=== PATIENT | female | born 1970 | race Caucasian/White ===

== ENCOUNTER 2018-09-24 15:55 | Emergency (ER) | payer BC ==
[~2018-09-24] VITALS: Ht 167.6 cm; Wt 68.0 kg
[~2018-09-24 15:55] MED LIST: ATEN-41 PO; CLON0.5T12 PO; GABA-531 PO; LEVE500T9 PO
[2018-09-24 16:00] VITALS: BP_SYST 114
[2018-09-24] MEDS ORDERED: NACL 0.9% 1,000 ML IV ONE ×2 (16:15→16:30)
[2018-09-24] MEDS ORDERED: ONDANSETRON HCL 4 MG/2 ML VIAL IVP ONE (16:30)
[2018-09-24] MEDS ORDERED: KETOROLAC TROMETHAMINE 30 MG VIAL IVP ONE (16:30)
[2018-09-24] MEDS ORDERED: levETIRAcetam 1,000 MG IV BAG 100 ML IV ONE (16:30)
[2018-09-24 16:43] LABS: ANION GAP 8 (5-15); CALCIUM 8.5 mg/dL (8.4-11.0); CHLORIDE 105 mmol/L (98-107); CREATININE 0.74 mg/dL (0.55-1.30); GFR AFRICAN AMERICAN 107 mL/min (>90); GLUCOSE 117 mg/dL (70-99); POTASSIUM 3.5 mmol/L (3.5-5.1); SODIUM SERUM 139 mmol/L (136-145); UREA NITROGEN, BLOOD 11 mg/dL (8-21)
[2018-09-24 16:47] LABS: HEMATOCRIT 31.8 % (36-48); HEMOGLOBIN 10.1 g/dL (12.0-16.0); MEAN CORPUSCULAR HEMOGLOBIN 23 pg (27-31); MEAN CORPUSCULAR HGB CONC 32 % (32-36); MEAN CORPUSCULAR VOLUME 72 fL (79.0-98.0); PLATELET COUNT (AUTO) 220 K/uL (130-430); RED BLOOD CELL COUNT(AUTO) 4.41 MIL/uL (4.2-6.2); RED CELL DISTRIBUTION WIDTH 16.4 % (9.0-15.0); WHITE BLOOD COUNT (AUTO) 6.4 K/uL (4.8-10.8)
[2018-09-24 16:51] LABS: ACETAMINOPHEN < 1 ug/mL (1-30); ALANINE AMINOTRANSFERASE 14 U/L (12-78); ALBUMIN 3.2 g/dL (3.4-4.8); ASPARTATE AMINOTRANSFERASE 14 U/L (10-37); TOTAL BILIRUBIN 0.3 mg/dL (0.0-1.0)
[2018-09-24 16:52] LABS: ALCOHOL, BLOOD < 3 mg/dL (<10)
[2018-09-24 16:55] LABS: LYMPHOCYTES % (AUTO) 20.6 % (20.5-51.5); MONOCYTES % (AUTO) 8.9 % (1.7-9.3)
[2018-09-24 16:56] LABS: BASOPHILS % (AUTO) 0.5 % (0.0-2.0); EOSINOPHILS # (AUTO) 0.1 K/uL (0.0-0.4); LYMPHOCYTES # (AUTO) 1.3 K/uL (1.0-5.5); MONOCYTES # (AUTO) 0.6 K/uL (0.0-1.0); NEUTROPHILS # (AUTO) 4.3 K/uL (1.8-7.7)
[2018-09-24 17:05] LABS: BARBITURATE, URINE NEGATIVE (NEG <=200); BENZODIAZEPINE, URINE NEGATIVE (NEG <=150); CANNABINOID, URINE NEGATIVE (NEG <=50); COCAINE, URINE NEGATIVE (NEG <=150); METHAMPHETAMINES SCREEN,URINE NEGATIVE (NEG <=500); OPIATE, URINE NEGATIVE (NEG <=100); PHENCYCLIDINE SCREEN,URINE NEGATIVE (NEG <=25); UR TRICYCLIC ANTIDEPRESSANTS NEGATIVE (NEG <=300); URINE AMPHETAMINE NEGATIVE (NEG <=500); URINE METHADONE NEGATIVE (NEG <=200); URINE OXYCODONE SCREEN NEGATIVE (NEG <=100); URINE PROPOXYPHENE SCREEN NEGATIVE (NEG <=300)
[2018-09-24 17:45] VITALS: BP_SYST 110
== END 2018-09-24 17:45 | disposition home or self-care (01) ==
LOC: SED 15:55
DX: R56.9 Unspecified convulsions (principal); R11.0 Nausea; M79.7 Fibromyalgia; F41.9 Anxiety disorder, unspecified; Z98.84 Bariatric surgery status; Z88.2 Allergy status to sulfonamides; Z79.899 Other long term (current) drug therapy
CPT/HCPCS: 36415; 80053; 80307; 85025; 96365; 96375; 99284; G0480; G0481; G0482; J1885; J1953; J2405; J7030

== ENCOUNTER 2018-10-22 14:59 | Emergency (ER) | payer BC ==
[~2018-10-22] VITALS: Ht 167.6 cm; Wt 68.0 kg
--- NOTE | 2018-10-22 15:02 | NUR ---
Patient to ER bed 03 to gown for evaluation. Side rails up.
[2018-10-22 15:07] VITALS: BP_SYST 121
--- NOTE | 2018-10-22 15:10 | NUR ---
Dr Silva at bedside examining patient
--- NOTE | 2018-10-22 15:19 | NUR ---
PT BIBA FROM [facility] WHERE HER DAD WAS DRIVING HER AND REPORED PT HAD A SEIZURE EN ROUTE FROM [place] TO HOME. PT STATES SHE HAS BEEN TAKING HER KEPPRA ORDERED, BUT VERBALIZES THAT THERE HAS BEEN AN INCREASE IN DOSAGE IN THE LAST 3 WEEKS. PT STATES JUST REMEBERING SHE WASNT FEELING WELL. DENIES ACUTE INJURY TO HEAD. NO INJURIES NOTED. PT CURRENTLY AAOX4, IN NAD. RESP EVEN AND UNALBORED, DENIES ANY NAUSEA/HEADACHE AT THIS TIME. SAFETY MEASURES IN PLACE. SEIZURE PRECAUTIONS TO BED. PT HAS HX OF GASTRIC BYPASS 7 YEARS AGO AND REPORTS SHE'S HAD MANY COMPLICATIONS FROM IT INCLUDING THESE SEIZURES.
--- NOTE | 2018-10-22 15:21 | NUR ---
PLACED ON BEDPAN, PT REQUESTING TO VOID.
[2018-10-22 15:42] LABS: BILIRUBIN,URINE NEGATIVE (NEGATIVE); BLOOD, URINE NEGATIVE (NEGATIVE); CLARITY/URINE CLEAR (CLEAR); COLOR,URINE YELLOW (YELLOW); GLUCOSE,URINE NEGATIVE (NEGATIVE); KETONES,URINE NEGATIVE (NEGATIVE); LEUKOCYTE ESTERASE ,URINE NEGATIVE (NEGATIVE); NITRITE, URINE NEGATIVE (NEGATIVE); PROTEIN URINE NEGATIVE (NEGATIVE); UROBILINOGEN,URINE 0.2 (0.2-1.0)
--- NOTE | 2018-10-22 16:08 | NUR ---
UPON ROUNDS, PT C/O NECK PAIN AND REQUESTING PAIN MEDS. STATES "I DONT CARE , GIVE ME FUCKING TYLENOL, I DONT CARE" DR ALEXANDER AWARE. VERBAL ORDERS FOR TYLENOL GIVEN.
[2018-10-22 16:13] LABS: CALCIUM 8.4 mg/dL (8.4-11.0); CREATININE 0.73 mg/dL (0.55-1.30); POTASSIUM 4.4 mmol/L (3.5-5.1)
[2018-10-22 16:13] LABS: BARBITURATE, URINE NEGATIVE (NEG <=200); BENZODIAZEPINE, URINE NEGATIVE (NEG <=150); CANNABINOID, URINE NEGATIVE (NEG <=50); COCAINE, URINE NEGATIVE (NEG <=150); METHAMPHETAMINES SCREEN,URINE NEGATIVE (NEG <=500); OPIATE, URINE NEGATIVE (NEG <=100); PHENCYCLIDINE SCREEN,URINE NEGATIVE (NEG <=25); UR TRICYCLIC ANTIDEPRESSANTS NEGATIVE (NEG <=300); URINE AMPHETAMINE NEGATIVE (NEG <=500); URINE METHADONE NEGATIVE (NEG <=200); URINE OXYCODONE SCREEN NEGATIVE (NEG <=100); URINE PROPOXYPHENE SCREEN NEGATIVE (NEG <=300)
[2018-10-22] MEDS ORDERED: ACETAMINOPHEN 500 MG TABLET PO ONE (16:15)
--- NOTE | 2018-10-22 16:18 | NUR ---
PT NOW ALSO C/O NAUSEA, DR ALEXANDER INFORMED, VERBAL ORDERS RECEIVED FOR ANTIEMETIC.
[2018-10-22 16:19] LABS: ALBUMIN 3.1 g/dL (3.4-4.8); TOTAL BILIRUBIN 0.3 mg/dL (0.0-1.0)
--- NOTE | 2018-10-22 16:26 | NUR ---
AT BEDSIDE, PT CONTENT.
[2018-10-22] MEDS ORDERED: ONDANSETRON 4 MG ODT TAB PO ONE (16:30)
[2018-10-22 16:31] LABS: RED BLOOD CELL COUNT(AUTO) 4.34 MIL/uL (4.2-6.2); WHITE BLOOD COUNT (AUTO) 5.5 K/uL (4.8-10.8)
[2018-10-22 16:32] LABS: HEMATOCRIT 30.5 % (36-48); HEMOGLOBIN 9.5 g/dL (12.0-16.0); LYMPHOCYTES % (AUTO) 23.2 % (20.5-51.5); MEAN CORPUSCULAR HEMOGLOBIN 22 pg (27-31); MEAN CORPUSCULAR HGB CONC 31 % (32-36); MEAN CORPUSCULAR VOLUME 70 fL (79.0-98.0); NEUTROPHILS % (AUTO) 67.6 % (40.0-70.0); PLATELET COUNT (AUTO) 222 K/uL (130-430); RED CELL DISTRIBUTION WIDTH 18.5 % (9.0-15.0)
[2018-10-22 16:33] LABS: BASOPHILS # (AUTO) 0.1 K/uL (0.0-0.2); BASOPHILS % (AUTO) 1.2 % (0.0-2.0); EOSINOPHILS % (AUTO) 0.7 % (0.0-4.0); LYMPHOCYTES # (AUTO) 1.3 K/uL (1.0-5.5); MONOCYTES # (AUTO) 0.4 K/uL (0.0-1.0); MONOCYTES % (AUTO) 7.3 % (1.7-9.3); NEUTROPHILS # (AUTO) 3.7 K/uL (1.8-7.7)
--- NOTE | 2018-10-22 16:55 | NUR ---
Patient is complianing of left shoulder and chest pain. Dr. Silva at bedside to eval. EKG to be done.
[2018-10-22] MEDS ORDERED: KETOROLAC TROMETHAMINE 30 MG VIAL IVP ONE (17:00)
--- NOTE | 2018-10-22 17:30 | NUR ---
Patient upset about her stay here and would like to go home. Charge nurse aware and at bedside speaking with patient. Patient requesting copies of her labs, patient filling out consent for release of medical records.
[2018-10-22 18:00] VITALS: BP_SYST 109
--- NOTE | 2018-10-22 18:00 | NUR ---
Patient given written and verbal discharge instructions and verbalizes understanding. ER MD discussed with patient the results and treatment provided. Patient in stable condition. ID arm band removed. IV catheter removed intact and dressing applied, no active bleeding. Rx of Naprosyn given. Patient educated on pain management and to follow up with PMD. Pain Scale 0. Opportunity for questions provided and answered. Medication side effect fact sheet provided. Patient left ER in no acute distress, able to ambulate without difficulty with slow, steady gait with family at her side. No adverse reaction noted to medication. No seizure activity noted while in ER.
== END 2018-10-22 18:00 | disposition home or self-care (01) ==
LOC: SED 14:59
DX: G40.802 Other epilepsy, not intractable, without status epilepticus (principal); R03.0 Elevated blood-pressure reading, without diagnosis of hypertension; F41.9 Anxiety disorder, unspecified; M79.7 Fibromyalgia; Z98.84 Bariatric surgery status; Z88.2 Allergy status to sulfonamides; Z79.899 Other long term (current) drug therapy
CPT/HCPCS: 36415; 71045; 80053; 80307; 81003; 85025; 93005; 96374; 99284; J1885; Q0162

== ENCOUNTER 2021-12-09 16:37 | Emergency (ER) | payer OTHER, BC, SELFPAY ==
[~2021-12-09] VITALS: Ht 170.2 cm; Wt 63.5 kg
[~2021-12-09 16:37] MED LIST changes: -CLON0.5T12 PO; +CLON0.5T4 PO
[2021-12-09 16:38] VITALS: BP_SYST 117
--- NOTE | 2021-12-09 16:38 | NUR ---
Placed in room 04 . Seizure precautions in place. Seizure pads applied to gurney. Side rails up. REPORT GIVEN TO ATIYA LAYNE
--- NOTE | 2021-12-09 16:40 | NUR ---
Pt in bed #4 BIBA from home whre pt had a seizure. Pt c/o having a seizure an hour ago at home and also feeling numbness on left side of face. No s/s of stroke present. No drift. Pupils PERRLA. Pt is A&Ox4. Accucheck done and results were 78. Connected pt to field placement director and VSS. Seizure preacautions in place. Pt has 20g IV on right hand no infiltration noted. Pt has sensation in all extremities. In route medics gave 2.5 of Versed and 4 of Zofran. Skin intact. Pt is allergic to Sulfa medications. Pt has hx of seizures, neuropathy, anxiety, and fibromyalgia. Pt states she is compliant with her medications. Has had gastric bypass. Neuro checks within normal limits. Placed pt in gown and belongings at bedside. EKG done and results given to Dr. Carlson. Bed in lowest position.
--- NOTE | 2021-12-09 16:43 | NUR ---
Dr. Carlson at bedside examining pt.
[2021-12-09] MEDS ORDERED: NACL 0.9% 1,000 ML IV ONE (17:00)
--- NOTE | 2021-12-09 17:00 | NUR ---
Patient having 30 second witnessed tonic clonic seizure, Prior to seizure, Patient told control systems technician that she is going to have a seizure. Sister at bedside. MD notified. Verbal order for Ativan 2 mg IVP NOW. Prior to adminstration MD told to hold medication because seizure stopped.
[2021-12-09] MEDS ORDERED: LORazepam 2 MG/ML VIAL ONE (17:01)
--- NOTE | 2021-12-09 17:11 | NUR ---
Patient reports pain to FRONTAL HEADACHE . Rates pain 7/10. Pain radiates to BACK OF NECK. Quality of pain THROBBING. MD NOTIFIED
--- NOTE | 2021-12-09 17:13 | NUR ---
PATIENT OFF UNIT TO CT SCAN FOR CT OF THE HEAD.
[2021-12-09] MEDS ORDERED: LORazepam 2 MG/ML VIAL IVP ONE (17:15)
[2021-12-09] MEDS ORDERED: HYDR-3927 PO (17:22)
--- NOTE | 2021-12-09 17:22 | NUR ---
PATIENT RETURNED FROM CT SCAN IN STABLE CONDITION. NO VOICED COMPLAINTS
--- NOTE | 2021-12-09 17:23 | NUR ---
Medication reconciliation completed with information provided by PATIENT'S MEDICATION BOTTLES. Any prior medication reconciliation on file was reviewed and corrected.
[2021-12-09 17:24] LABS: BILIRUBIN,URINE NEGATIVE (NEGATIVE); BLOOD, URINE NEGATIVE (NEGATIVE); CLARITY/URINE CLEAR (CLEAR); COLOR,URINE YELLOW (YELLOW); GLUCOSE,URINE NEGATIVE (NEGATIVE); KETONES,URINE NEGATIVE (NEGATIVE); LEUKOCYTE ESTERASE ,URINE NEGATIVE (NEGATIVE); NITRITE, URINE NEGATIVE (NEGATIVE); PH,URINE 6.5 (5.0-8.0); PROTEIN URINE NEGATIVE (NEGATIVE); UROBILINOGEN,URINE 0.2 (0.2-1.0)
--- NOTE | 2021-12-09 17:24 | NUR ---
PATIENT STATES SHE IS FULL CODE.
[2021-12-09] MEDS ORDERED: fentaNYL CITRATE/PF 100 MCG/2 ML AMP IVP ONE (17:30)
[2021-12-09] MEDS ORDERED: ONDANSETRON HCL 4 MG/2 ML VIAL IVP ONE (17:30)
[2021-12-09 17:34] LABS: BARBITURATE, URINE NEGATIVE (NEG <=200); BENZODIAZEPINE, URINE NEGATIVE (NEG <=150); CANNABINOID, URINE POSITIVE (NEG <=50); COCAINE, URINE NEGATIVE (NEG <=150); METHAMPHETAMINES SCREEN,URINE NEGATIVE (NEG <=500); PHENCYCLIDINE SCREEN,URINE NEGATIVE (NEG <=25); URINE AMPHETAMINE NEGATIVE (NEG <=500); URINE METHADONE NEGATIVE (NEG <=200)
[2021-12-09 17:35] LABS: OPIATE, URINE POSITIVE (NEG <=100); UR TRICYCLIC ANTIDEPRESSANTS NEGATIVE (NEG <=300); URINE OXYCODONE SCREEN NEGATIVE (NEG <=100); URINE PROPOXYPHENE SCREEN NEGATIVE (NEG <=300)
[2021-12-09 17:49] LABS: ANION GAP 3 (5-15); BASOPHILS % (AUTO) 0.8 % (0.0-2.0); CALCIUM 8.4 mg/dL (8.4-11.0); CHLORIDE 106 mmol/L (98-107); EOSINOPHILS # (AUTO) 0.2 K/uL (0.0-0.4); EOSINOPHILS % (AUTO) 2.8 % (0.0-4.0); GLUCOSE 89 mg/dL (70-99); HEMATOCRIT 27.8 % (36-48); HEMOGLOBIN 8.7 g/dL (12.0-16.0); LYMPHOCYTES % (AUTO) 36.3 % (20.5-51.5); MEAN CORPUSCULAR HEMOGLOBIN 21 pg (27-31); MEAN CORPUSCULAR HGB CONC 31 % (32-36); MEAN CORPUSCULAR VOLUME 66 fL (79.0-98.0); MONOCYTES # (AUTO) 0.5 K/uL (0.0-1.0); MONOCYTES % (AUTO) 9.3 % (1.7-9.3); NEUTROPHILS # (AUTO) 2.8 K/uL (1.8-7.7); NEUTROPHILS % (AUTO) 50.8 % (40.0-70.0); PLATELET COUNT (AUTO) 251 K/uL (130-430); POTASSIUM 4.1 mmol/L (3.5-5.1); RED BLOOD CELL COUNT(AUTO) 4.21 MIL/uL (4.2-6.2); RED CELL DISTRIBUTION WIDTH 19.8 % (9.0-15.0); SODIUM SERUM 137 mmol/L (136-145); UREA NITROGEN, BLOOD 12 mg/dL (8-21); WHITE BLOOD COUNT (AUTO) 5.4 K/uL (4.8-10.8)
[2021-12-09 17:54] LABS: GFR AFRICAN AMERICAN 113 mL/min (>90)
[2021-12-09 17:56] LABS: ALANINE AMINOTRANSFERASE 21 U/L (12-78); ALCOHOL, BLOOD < 3 mg/dL (<10); ASPARTATE AMINOTRANSFERASE 18 U/L (10-37); TOTAL BILIRUBIN 0.2 mg/dL (0.0-1.0)
--- NOTE | 2021-12-09 18:33 | NUR ---
PATIENT RESTING QUIETLY AT BEDSIDE.
[2021-12-09 19:35] VITALS: BP_SYST 122
--- NOTE | 2021-12-09 19:35 | NUR ---
Patient given written and verbal discharge instructions and verbalizes understanding. ER MD discussed with patient the results and treatment provided. Patient in stable condition. ID arm band removed. IV catheter removed intact and dressing applied, no active bleeding. NO RX. Pain Scale 0/10 Opportunity for questions provided and answered. Medication side effect fact sheet provided.
== END 2021-12-09 19:35 | disposition home or self-care (01) ==
LOC: SED 16:37
DX: G40.911 Epilepsy, unspecified, intractable, with status epilepticus (principal); D63.8 Anemia in other chronic diseases classified elsewhere; F41.9 Anxiety disorder, unspecified; I10 Essential (primary) hypertension; Z88.2 Allergy status to sulfonamides; Z98.0 Intestinal bypass and anastomosis status; Z20.822 Contact with and (suspected) exposure to COVID-19
CPT/HCPCS: 36415; 70450; 76376; 80053; 80307; 81003; 85025; 87426; 93005; 96361; 96374; 96375; 99284; G0482; J2405; J3010; J2060

== ENCOUNTER 2023-02-02 16:07 | Emergency (ER) | payer OTHER, BC ==
[~2023-02-02] VITALS: Ht 167.6 cm; Wt 54.4 kg
[~2023-02-02 16:07] MED LIST changes: -ATEN-41 PO; -GABA-531 PO; +HYDR-3927 PO; -LEVE500T9 PO; +PREG75CA PO
[2023-02-02 16:18] VITALS: BP_SYST 140
--- NOTE | 2023-02-02 16:23 | NUR ---
Placed in room 01 . Placed on surveillance system monitor, blood pressure machine and pulse oximeter. To gown for exam. Side rails up. Report given to ATIYA FLOYD
--- NOTE | 2023-02-02 16:51 | NUR ---
Pt requested bedpan, cleansed and dry. skin intact, pt posiitioned to comfort with lights out as requested. Pt is aaox3 with history of PNS psycogenic nonepileptic seizures.
--- NOTE | 2023-02-02 16:55 | NUR ---
Pt medicated per MD order.
[2023-02-02] MEDS ORDERED: levETIRAcetam 1,000 MG IV BAG 100 ML IV ONE (17:00)
[2023-02-02 17:40] LABS: BASOPHILS % (AUTO) 0.9 % (0.0-2.0); EOSINOPHILS # (AUTO) 0.2 K/uL (0.0-0.4); HEMATOCRIT 30.1 % (36-48); HEMOGLOBIN 9.8 g/dL (12.0-16.0); LYMPHOCYTES # (AUTO) 2.1 K/uL (1.0-5.5); LYMPHOCYTES % (AUTO) 38.5 % (20.5-51.5); MEAN CORPUSCULAR HEMOGLOBIN 23 pg (27-31); MEAN CORPUSCULAR HGB CONC 32 % (32-36); MEAN CORPUSCULAR VOLUME 72 fL (79.0-98.0); MONOCYTES # (AUTO) 0.5 K/uL (0.0-1.0); NEUTROPHILS # (AUTO) 2.6 K/uL (1.8-7.7); NEUTROPHILS % (AUTO) 47.6 % (40.0-70.0); PLATELET COUNT (AUTO) 202 K/uL (130-430); RED BLOOD CELL COUNT(AUTO) 4.16 MIL/uL (4.2-6.2); RED CELL DISTRIBUTION WIDTH 19.3 % (9.0-15.0); WHITE BLOOD COUNT (AUTO) 5.5 K/uL (4.8-10.8)
[2023-02-02] MEDS ORDERED: KETOROLAC TROMETHAMINE 30 MG VIAL IVP ONE (17:45)
[2023-02-02 17:54] LABS: CALCIUM 7.8 mg/dL (8.4-11.0); CREATININE 0.73 mg/dL (0.55-1.30); TOTAL BILIRUBIN 0.3 mg/dL (0.0-1.0)
--- NOTE | 2023-02-02 17:59 | NUR ---
Pt complains of back pain that radiates to the shoulders. Pt states pain gradient 10/10. Pt states history of fibromyalgia with a flare up at this time.
--- NOTE | 2023-02-02 18:17 | NUR ---
Anders stout in [facility] - 02/02/23 at 1818 by [email or web address] DUNIA Conrad at bedside examining patient.
--- NOTE | 2023-02-02 18:48 | NUR ---
Patient given written and verbal discharge instructions and verbalizes understanding. ER MD discussed with patient the results and treatment provided. Patient in stable condition. ID arm band removed. Patient educated on pain management and to follow up with PMD. Opportunity for questions provided and answered. Medication side effect fact sheet provided.
[2023-02-02 18:51] VITALS: BP_SYST 140
== END 2023-02-02 18:51 | disposition home or self-care (01) ==
LOC: SED 16:07
DX: G40.909 Epilepsy, unspecified, not intractable, without status epilepticus (principal); R51.9 Headache, unspecified; Z88.2 Allergy status to sulfonamides; Z88.6 Allergy status to analgesic agent; Z79.899 Other long term (current) drug therapy
CPT/HCPCS: 99285; 96365; 70450; 96375; 80053; 85025; 36415; 76376; J1885; J1953